=== PATIENT | male | born 1990 | race Caucasian/White ===

== ENCOUNTER 2024-12-01 21:04 | Inpatient (IN) | payer OTHER ==
[~2024-12-01] VITALS: Ht 180.3 cm; Wt 82.0 kg
[2024-12-01 22:37] LABS: BASOPHILS % (AUTO) 0.5 % (0.0-2.0); EOSINOPHILS % (AUTO) 4.3 % (1.0-6.0); HEMATOCRIT 45.1 % (41-53); HEMOGLOBIN 15.4 g/dL (13.5-17.5); LYMPHOCYTES # (AUTO) 2.6 K/uL (1.0-4.8); MEAN CORPUSCULAR HEMOGLOBIN 30.3 pg (26.0-34.0); MEAN CORPUSCULAR HGB CONC 34.1 G/dL (31.0-37.0); MEAN CORPUSCULAR VOLUME 89 fL (80-100); MONOCYTES % (AUTO) 10.2 % (2.0-9.0); NEUTROPHILS # (AUTO) 5.4 K/uL (1.8-7.7); PLATELET COUNT (AUTO) 333 K/uL (150-450); RED BLOOD CELL COUNT(AUTO) 5.07 MIL/uL (4.50-5.90); RED CELL DISTRIBUTION WIDTH 13.7 % (11.5-14.5); WHITE BLOOD COUNT (AUTO) 9.4 K/uL (4.5-11.0)
[2024-12-01 22:43] LABS: ANION GAP 4 mmol/L (8-16); CALCIUM, TOTAL 9.1 mg/dL (8.8-10.5); CARBON DIOXIDE 31 mmol/L (22-29); CHLORIDE 105 mmol/L (98-107); CREATININE 0.85 mg/dL (0.60-1.30); GLOMERULAR FILTR. RATE CALC > 60 mL/min (>60); GLUCOSE,RANDOM 111 mg/dL (70-110); POTASSIUM 4.2 mmol/L (3.5-5.1); SODIUM SERUM 140 mmol/L (136-145); UREA NITROGEN, BLOOD 18 mg/dL (7-18)
[2024-12-01 22:49] LABS: CREATINE KINASE, TOTAL ONLY 99 U/L (39-308)
[2024-12-01 22:51] LABS: ALCOHOL, BLOOD (SERUM) < 3 mg/dL (0-10)
[2024-12-02 06:52] VITALS: BP 124/74; PULSE 74; RESP 18; TEMP 97.5; O2SAT 100
[2024-12-02 08:06] VITALS: BP 102/72; PULSE 70; RESP 18; TEMP 97.7; O2SAT 100
[2024-12-02 15:40] VITALS: BP 118/77; PULSE 76; RESP 18; TEMP 98.4; O2SAT 100
[2024-12-02 19:29] VITALS: BP 111/72; PULSE 84; RESP 18; TEMP 98.4; O2SAT 100
[2024-12-02 23:19] LABS: APPEARANCE,URINE CLEAR (CLEAR); BILIRUBIN,URINE NEGATIVE (NEGATIVE); COLOR,URINE COLORLESS (YELLOW); GLUCOSE, URINE (UA) NEGATIVE (NEGATIVE); KETONES,URINE NEGATIVE (NEGATIVE); LEUKOCYTE ESTERASE ,URINE NEGATIVE (NEGATIVE); NITRATE,URINE NEGATIVE (NEGATIVE); OCCULT BLOOD,URINE NEGATIVE (NEGATIVE); PH,URINE 6.5 (5.0-8.0); PH,URINE DRUG SCREEN 6.5 (5.0-8.0); PROTEIN,URINE NEGATIVE (NEGATIVE); SPECIFIC GRAVITIY, URINE 1.012 (1.003-1.030); UROBILINOGEN,URINE <=1.0 mg/dL (<=1.0)
[2024-12-02 23:23] LABS: ALCOHOL, URINE DRUG SCREEN NEGATIVE (NEGATIVE); AMPHET/METH SCREEN,URINE POSITIVE (NEGATIVE); BARBITURATE SCREEN, URINE NEGATIVE (NEGATIVE); BENZODIAZEPINES SCREEN,URINE NEGATIVE (NEGATIVE); CANNABINOID SCREEN,URINE NEGATIVE (NEGATIVE); COCAINE SCREEN,URINE NEGATIVE (NEGATIVE); METHADONE SCREEN, URINE NEGATIVE (NEGATIVE); OPIATE SCREEN,URINE NEGATIVE (NEGATIVE); PHENCYCLIDINE SCREEN,URINE NEGATIVE (NEGATIVE)
[2024-12-02 23:27] LABS: BACTERIA,URINE None Seen /HPF (None Seen); RBC,URINE None Seen /HPF (0-2); SQUAMOUS EPITHELIAL CELL,UR None Seen /LPF (None Seen); WBC,URINE None Seen /HPF (0-5)
[2024-12-03 05:02] VITALS: BP 112/73; PULSE 68; RESP 18; TEMP 97.9; O2SAT 98
[2024-12-03 06:01] LABS: GLUCOMETER DEV NAME(LOC) 6N.2B; GLUCOSE,POINT OF CARE 114 MG/DL (70-110)
[2024-12-03 06:01] LABS: GLUCOMETER DEV NAME(LOC) 6S.1D; GLUCOSE,POINT OF CARE 114 MG/DL (70-110)
[2024-12-03 08:00] VITALS: BP 104/68; PULSE 71; RESP 19; TEMP 97.5; TEMP 97.6; O2SAT 98
== END 2024-12-03 19:00 | DRG 897 ==
LOC: EMS 21:04 → EDH 12-02 04:05 → 6S 12-02 06:44
PROVIDERS: ADMIT Hospitalist; ATTEND Hospitalist
DX: F15.13 Other stimulant abuse with withdrawal (principal); E11.9 Type 2 diabetes mellitus without complications; E78.5 Hyperlipidemia, unspecified; F20.9 Schizophrenia, unspecified; Z72.0 Tobacco use; Z79.899 Other long term (current) drug therapy; Z88.0 Allergy status to penicillin
CPT/HCPCS: 80048; 80307; 81001; 82550; 82962; 85025; 87340; 99285; G0480

== ENCOUNTER 2025-04-09 17:58 | Emergency (ER) | payer MEDICAID, OTHER ==
[~2025-04-09] VITALS: Ht 185.4 cm; Wt 98.2 kg
[2025-04-09 18:07] VITALS: TEMP 99.1
[2025-04-09 18:22] LABS: COVID AG,FIA SOURCE NASAL SWAB
[2025-04-09 18:24] VITALS: BP 124/67; PULSE 106; RESP 18; O2SAT 99
[2025-04-09 18:39] LABS: RAPID GROUP A STREP POSITIVE (NEGATIVE)
[2025-04-09 18:44] LABS: SARS-COV2 (COVID) ANTIGEN,FIA Negative (Negative)
[2025-04-09 18:45] LABS: INFLUENZA TYPE A NEGATIVE FOR TYPE A (NEGATIVE); INFLUENZA TYPE B NEGATIVE FOR TYPE B (NEGATIVE)
[2025-04-09] MEDS ORDERED: AZIT-167 PO (19:20)
== END 2025-04-09 19:27 | disposition home or self-care (01) ==
LOC: EMS 18:01
DX: J02.0 Streptococcal pharyngitis (principal); E11.9 Type 2 diabetes mellitus without complications; F17.210 Nicotine dependence, cigarettes, uncomplicated; Z88.0 Allergy status to penicillin; Z20.822 Contact with and (suspected) exposure to COVID-19
CPT/HCPCS: 82962; 87430; 87804; 99283